=== PATIENT | female | born 1960 | race Hispanic/Latino ===

== ENCOUNTER 2017-11-04 07:50 | Emergency (ER) | payer OTHER, SELFPAY | END 2017-11-04 08:27 | disposition home or self-care (01) | LOC: EDH 07:50 | DX: J20.9 Acute bronchitis, unspecified (principal); E11.9 Type 2 diabetes mellitus without complications; Z79.4 Long term (current) use of insulin; Z88.5 Allergy status to narcotic agent | CPT/HCPCS: 71046; 87880 ==